=== PATIENT | female | born 1975 | race Caucasian/White ===

== ENCOUNTER 2016-06-02 11:37 | Observation (INO) | payer OTHER ==
[2016-06-02] MEDS ORDERED: LIDOCAINE 1% 2 ML INJ ONE (12:03)
[2016-06-02 12:30] LABS: % IMMATURE GRANULYOCYTES 0.1 % (0.0-1.1); ABSOLUTE IMMATURE GRANULOCYTES 0.01 10^3/uL (0.00-0.10); ADD DIFF? NO; ADD MORPH? NO; ADD SCAN? NO; ATYPICAL LYMPHOCYTE FLAG 0 (0-99); FRAGMENT RBC FLAG 0 (0-99); HEMOGLOBIN 15.7 g/dL (12.6-16.3); LEFT SHIFT FLG 0 (0-99); LIPEMIA HEMOLYSIS FLAG 90 (0-99); MEAN CELL HEMOGLOBIN 30.5 pg (27.9-34.1); MEAN CELL HEMOGLOBIN CONCENTR. 34.9 g/dL (32.4-36.7); MEAN CELL VOLUME 87.5 fL (81.5-99.8); MEAN PLATELET VOLUME 9.9 fL (8.7-11.7); PLATELET CLUMPS FLAG 0 (0-99); PLATELET COUNT 241 10^3/uL (150-400); RED BLOOD CELL COUNT 5.14 10^6/uL (4.18-5.33); RED CELL DISTRIBUTION WIDTH 12.3 % (11.5-15.2)
[2016-06-02] MEDS ORDERED: LR 1,000 ML IV ONE (12:31)
[2016-06-02] MEDS ORDERED: LIDOCAINE 1% 5 ML SDV ID PRN (12:31)
[2016-06-02] MEDS ORDERED: MIDAZOLAM 2 MG/2 ML VIAL ONE (14:16)
[2016-06-02] MEDS ORDERED: BUPIVACAINE/EPI 0.5% 30 ML SDV ONE (14:20)
[2016-06-02] MEDS ORDERED: REMIFENTANIL HCL 1 MG VIAL ONE (14:22)
[2016-06-02] MEDS ORDERED: PROPOFOL/EMULSION 500 MG/50 ML BOTTLE IV ONE (14:22)
[2016-06-02] MEDS ORDERED: fentaNYL 250 MCG/5 ML INJ ONE (14:22)
[2016-06-02] MEDS ORDERED: ALPRAZolam 1 MG TAB PO PRN (14:23)
[2016-06-02] MEDS ORDERED: RIZATRIPTAN BENZOATE 10 MG PO PRN (14:23)
[2016-06-02] MEDS ORDERED: LIDOCAINE 2% 100 MG/5 ML SYR ONE (14:24)
[2016-06-02] MEDS ORDERED: ONDANSETRON 4 MG/2 ML VIAL IVP PRN (14:24)
[2016-06-02] MEDS ORDERED: DEXAMETHASONE 4 MG/ML VIAL ONE (14:24)
[2016-06-02] MEDS ORDERED: ROCURONIUM 100 MG/10 ML VIAL ONE (14:24)
[2016-06-02] MEDS ORDERED: METOCLOPRAMIDE 10 MG/2 ML VIAL ONE (14:24)
[2016-06-02] MEDS ORDERED: HYDROCODONE/APAP 5/325 TAB PO PRN (14:24)
[2016-06-02] MEDS ORDERED: LR 1,000 ML IV SCH (14:30)
[2016-06-02] MEDS ORDERED: KETOROLAC 30 MG/1 ML SDV ONE (16:15)
[2016-06-02] MEDS ORDERED: ONDANSETRON 4 MG/2 ML VIAL ONE (16:15)
[2016-06-02] MEDS ORDERED: SUGAMMADEX SODIUM 200 MG/2 ML VIAL IVP ONE (16:15)
[2016-06-02] MEDS ORDERED: SKIN ADHESIVE (DERMABOND) 1 EACH TP ONE (16:21)
[2016-06-02] MEDS ORDERED: fentaNYL 100 MCG/2 ML INJ ONE ×2 (16:39→16:54)
[2016-06-02] MEDS ORDERED: HYDROmorphONE/DILAUDID 1 MG/ML SYR ONE ×2 (16:39→17:22)
[2016-06-02] MEDS ORDERED: DIAZEPAM 10 MG/2 ML SYR IVP PRN (17:06)
[2016-06-02 18:08] VITALS: RESP 16
[2016-06-02] MEDS: PILOCARPINE 1% 15 ML OPHT.BTL LEFTEYE SCH ×2 (18:51→22:56)
--- NOTE | 2016-06-02 18:58 | GOP ---
[f rep st] OPERATIVE REPORT DATE OF OPERATION: 06/02/2016 SURGEON: Raymond Chaney MD LUNG PULLER: Rehana Palencia; she is a [place] [employer]. ANESTHESIA: General. PREOPERATIVE DIAGNOSIS: 1. Endometriosis. 2. Dysmenorrhea. 3. Pelvic pain. 4. Urinary frequency and interstitial cystitis. 5. Uterine prolapse. POSTOPERATIVE DIAGNOSIS: PROCEDURE PERFORMED: 1. Robotic-assisted total laparoscopic hysterectomy, bilateral salpingo- oophorectomy. 2. Bilateral ureterolysis. 3. Bilateral uterosacral ligament colpopexy. 4. Cystoscopy. FINDINGS: Severe endometriosis of posterior cul-de-sac, bilateral ovarian fossa , and rectum. 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 SPECIMENS: 1. Uterus, bilateral tubes, and ovaries. 1. Posterior cul-de-sac peritoneum and bilateral ovarian fossa peritoneum. 2. ESTIMATED BLOOD LOSS: 25 mL. DESCRIPTION OF PROCEDURE: The patient was taken to the operating room where she was identified. General anesthesia was administered and found to be adequate. She was placed in the lithotomy position and prepared and draped in normal sterile fashion. A [facility] uterine manipulator was placed into the endometrial cavity and sutured to the cervix. A Castro catheter was then placed. A 1 cm infraumbilical incision was made with a scalpel. The Veress needle with a CO2 gas flowing was advanced into the peritoneal cavity. The abdomen was inflated with carbon dioxide gas. The 12 mm trocar followed by the laparoscope were then inserted. The upper abdomen was unremarkable. There was no evidence of endometriosis on either diaphragm, the liver, gallbladder, or stomach. She did have some slight adhesions of bowel to the right upper abdominal wall. Two lateral ports were placed in the right and one on the left under direct visualization. She then was placed in Trendelenburg position, and the da Omar robot docked on the left side. The instruments were then brought into the abdominal cavity under direct visualization. Both ovaries were adherent to the pelvic sidewall as well as the posterior uterus. The rectum was adherent to the posterior uterus and cervix. Because of the adnexal adhesions to the ureters, a bilateral ureterolysis was required. The pelvic peritoneum at the pelvic brim was incised. The ureter was gently dissected free. The dissection was carried distally all the way down to the bladder. This was performed bilaterally. Both ureters were actually adherent to the cervix. They were dissected free of the cervix as well so they would not be injured during the colpotomy incision. Once this was accomplished, the uterine arteries were ligated just above each ureter. The anterior lip of the broad ligament was then incised, across the cervix, and the bladder dissected off the cervix and upper vagina. The peritoneum with endometriosis was excised from both ovarian fossae as well as both uterosacral ligaments, and the entire posterior cul-de-sac peritoneum. The rectum was gently dissected off the cervix. Once this was accomplished, a circumferential colpotomy incision was then made with the hot garcía. The specimens were then removed through the vagina. The vaginal cuff was then closed with a running suture of 0 V-Loc 180. A bilateral uterosacral ligament colpopexy was performed by attaching the lateral aspect of the vaginal cuff to the ipsilateral uterosacral ligaments near their insertion into the coccygeal-sacrospinous ligament complexes. The pelvis was irrigated with sterile saline and hemostasis was present. No other lesions of endometriosis were seen. One sheet of Interceed was placed in the posterior cul-de-sac to try to prevent adhesions between the rectum and the vaginal cuff. The robot was then undocked. The fascia was closed with 0 Vicryl , skin with 4-0 Monocryl, and surgical adhesive. Cystoscopy was then performed. Both ureters had vigorous jets of urine. There was no evidence of bladder nor urethral injury seen. She did have an approximately 6 Hunner's ulcers within the bladder. Photos were taken. Anesthesia was reversed. The patient taken to PACU awake, in stable condition. COMPLICATIONS: None. DISPOSITION: Patient stable to PACU. /[id number]/MODL MTDD
[2016-06-02] MEDS: PHENAZOPYRIDINE HCL 200 MG TAB PO SCH (20:10)
[2016-06-02] MEDS: OXYCODONE/APAP 5/325 TAB PO PRN ×2 (20:18→23:52)
[2016-06-02] MEDS ORDERED: traZODone 100 MG TAB PO SCH (21:00)
[2016-06-02] MEDS: KETOROLAC 30 MG/1 ML SDV IVP SCH (22:29)
[2016-06-03] MEDS: HYDROmorphONE/DILAUDID 2 MG/ML INJ IVP PRN ×2 (02:44→06:29)
[2016-06-03] MEDS ORDERED: ZOLPIDEM TARTRATE 5 MG TAB PO ONE (03:00)
[2016-06-03] MEDS: KETOROLAC 30 MG/1 ML SDV IVP SCH ×2 (04:27→10:37)
[2016-06-03] MEDS: OXYCODONE/APAP 5/325 TAB PO PRN ×2 (04:28→08:48)
[2016-06-03] MEDS: PHENAZOPYRIDINE HCL 200 MG TAB PO SCH (04:28)
[2016-06-03 06:32] LABS: HEMOGLOBIN 11.2 g/dL (12.6-16.3)
[2016-06-03 07:38] VITALS: BP 84/59; PULSE 54; TEMP 97.3; O2SAT 92
[2016-06-03] MEDS: PILOCARPINE 1% 15 ML OPHT.BTL LEFTEYE SCH (09:00)
[2016-06-03] MEDS ORDERED: LOTEMAX 0.5% EACHEYE SCH (09:00)
[2016-06-03] MEDS ORDERED: Olopatadine Hcl [Pazeo] 1 DROP EACHEYE SCH (09:00)
[2016-06-03] MEDS ORDERED: TIMOLOL 0.5% 15 ML OPHT.BTL EACHEYE SCH (09:00)
[2016-06-03] MEDS ORDERED: HYDROmorphONE/DILAUDID 2 MG TAB PO PRN (09:22)
--- NOTE | 2016-06-03 09:31 | SOAPPROG ---
SOAP Progress Note Assessment/Plan: Assessment: Doing well, Plan: 06/03/16 09:29 Discharge home. Subjective: No significant complaints. Worried about pain control at home. Objective: Vital Signs Temp Pulse Resp BP Pulse Ox 36.3 C 54 L 16 84/59 L 92 06/03/16 07:37 06/03/16 07:37 06/03/16 07:37 06/03/16 07:37 06/03/16 07:37 Laboratory Results 06/03/16 06:25 06/02/16 06/03/16 06/04/16 05:59 05:59 05:59 Intake Total 2330 Output Total 1200 110 Balance 1130 -110 - Pending Discharge Pending Discharge Within 24 Hours: Yes Pending Discharge Date: 06/04/16 Pending Discharge Time: 11:00 Physical Exam - Physical Exam General Appearance: WD/WN, alert, no apparent distress Respiratory: lungs clear Cardiac/Chest: regular rate, rhythm Abdomen: normal bowel sounds, non-tender, soft (Incisions clean, dry, and intact.) ICD10 Worksheet Patient Problems: Problems Problem Status Onset Dysmenorrhea Acute Endometriosis of pelvic peritoneum Acute - ICD10 Problem Qualifiers (1) Endometriosis of pelvic peritoneum (2) Dysmenorrhea
--- NOTE | 2016-06-03 13:26 | GDS ---
[f rep st] DISCHARGE SUMMARY DISCHARGE DIAGNOSES: 1. Stage IV endometriosis. 2. Pelvic pain. 3. Dysmenorrhea. 4. Interstitial cystitis. PROCEDURES: 1. Robotic-assisted total laparoscopic hysterectomy, bilateral salpingo-oophorectomy. 2. Bilateral ureterolysis. 3. Bilateral uterosacral ligament colpopexy. 4. Extensive excision of endometriosis. 5. Cystoscopy. HISTORY: Samira is a 40-year-old female with a long history of pain secondary to endometriosis. S he was taken to the operating room on 06/02/2016 where she underwent the above-mentioned procedures without complications. Her postoperative course was uneventful. The morning after surgery she was ambulating, voiding, and tolerating a general diet. She was discharged home on postoperative day #1 in good condition. MEDICATIONS: Included Dilaudid, ibuprofen, Prempro, Valium and Pyridium, in addition to her normal outpatient regimen. FOLLOWUP: She was to follow up in the office 2 weeks after discharge. /[id number]/MODL
== END 2016-06-03 11:55 | disposition home or self-care (01) ==
LOC: F3E 11:37 → FOB 18:05
PROVIDERS: ADMIT Obstetrics & Gynecology; ATTEND Obstetrics & Gynecology
PROC: 0UTC4ZZ Resection of Cervix, Percutaneous Endoscopic Approach (ICD-10-PCS; principal; 2016-06-02 13:15)
PROC: 0UT24ZZ Resection of Bilateral Ovaries, Percutaneous Endoscopic Approach (ICD-10-PCS; principal; 2016-06-02 13:15)
PROC: 0UUG4JZ Supplement Vagina with Synthetic Substitute, Percutaneous Endoscopic Approach (ICD-10-PCS; principal; 2016-06-02 13:15)
PROC: 0UT74ZZ Resection of Bilateral Fallopian Tubes, Percutaneous Endoscopic Approach (ICD-10-PCS; principal; 2016-06-02 13:15)
PROC: 8E0Y4CZ Robotic Assisted Procedure of Lower Extremity, Percutaneous Endoscopic Approach (ICD-10-PCS; principal; 2016-06-02 13:15)
PROC: 0UT94ZZ Resection of Uterus, Percutaneous Endoscopic Approach (ICD-10-PCS; principal; 2016-06-02 13:15)
DX: N80.3 Endometriosis of pelvic peritoneum (principal); N80.8 Other endometriosis; N92.0 Excessive and frequent menstruation with regular cycle; R10.2 Pelvic and perineal pain; N94.6 Dysmenorrhea, unspecified; N30.10 Interstitial cystitis (chronic) without hematuria; N94.10 Unspecified dyspareunia; K59.00 Constipation, unspecified; M79.7 Fibromyalgia; D25.1 Intramural leiomyoma of uterus; N81.4 Uterovaginal prolapse, unspecified
CPT/HCPCS: 57425; 58571; C1765; G0378; J1100; J1170; J1885; J2001; J2250; J2405; J2704; J2765; J3010